=== PATIENT | male | born 1960 | race Caucasian/White ===

== ENCOUNTER 2017-11-15 09:22 | Emergency (ER) | payer MEDICAID ==
[~2017-11-15] VITALS: Ht 170.2 cm; Wt 68.0 kg
[2017-11-15 09:26] VITALS: Ht 170.2 cm; Wt 68.0 kg
[2017-11-15 10:18] LABS: BASOPHIL % 0.5 % (0-2); PLATELET COUNT 102 x10^3mcL (130-400); RED CELL DISTRIBUTION WIDTH 14.5 % (11.5-14.5)
[2017-11-15 10:23] LABS: CALCIUM 8.3 mg/dL (8.5-10.1); CHLORIDE SERUM 109 mmol/L (98-107); CREATININE SERUM 0.9 mg/dL (0.7-1.3); GFR1 > 60 mL/min; GLUCOSE SERUM 177 mg/dL (74-106); POTASSIUM SERUM 3.8 mmol/L (3.5-5.1); SODIUM SERUM 142 mmol/L (136-145)
[2017-11-15 10:27] LABS: ALKALINE PHOSPHATASE 279 U/L (46-116); ALT/SGPT 31 U/L (16-63); AST/SGOT 36 U/L (15-37); BILIRUBIN TOTAL 0.84 mg/dL (0.20-1.00); TOTAL PROTEIN, SERUM 7.6 g/dL (6.4-8.2)
[2017-11-15 13:00] VITALS: BP 104/57
== END 2017-11-15 13:00 | disposition short-term general hospital (02) ==
LOC: ED 09:22
PROVIDERS: Emergency Medicine
DX: G40.89 Other seizures (principal); R41.82 Altered mental status, unspecified
CPT/HCPCS: G0480; J1165; J2060; J3490; Q0092